=== PATIENT | female | born 1970 | race African-American/Black ===

== ENCOUNTER 2018-07-19 14:29 | Inpatient (IN) | payer MEDICARE, MEDICAID ==
[~2018-07-19] VITALS: Ht 170.2 cm; Wt 118.1 kg
[2018-07-19 14:46] VITALS: BP 108/62
[2018-07-19] MEDS ORDERED: POTASSIUM99 M3 PO (14:49)
[2018-07-19] MEDS ORDERED: ACTOS45 MG ORAL (14:49)
[2018-07-19] MEDS ORDERED: TENORMIN25 MG ORAL (14:49)
[2018-07-19] MEDS ORDERED: ABILIFY30 MG ORAL (14:49)
[2018-07-19] MEDS ORDERED: PREDNISONE10 M2 PO (14:51)
[2018-07-19] MEDS ORDERED: Ketorolac 30mg Inj IV ONE (15:00)
[2018-07-19] MEDS ORDERED: Solu-MEDROL 125mg Inj IVP ONE (15:00)
[2018-07-19 15:25] LABS: EOSINOPHILS % (AUTO) 0.7 % (0.0-3.0); HEMATOCRIT 32.9 % (37.0-47.0); HEMOGLOBIN 10.6 G/DL (12.0-16.0); LYMPHOCYTES % (AUTO) 20.4 % (20.0-45.0); MEAN CORPUSCULAR VOLUME 82 FL (80-99); MONOCYTES % (AUTO) 5.5 % (1.0-10.0); NEUTROPHILS % (AUTO) 72.4 % (45.0-75.0); PLATELET COUNT 311 K/UL (150-450); RED BLOOD COUNT 4.02 M/UL (4.20-5.40); WHITE BLOOD COUNT 5.7 K/UL (4.8-10.8)
[2018-07-19 15:50] LABS: ANION GAP 11 mmol/L (5-15); BLOOD UREA NITROGEN 7 mg/dL (7-18); CALCIUM 8.7 MG/DL (8.5-10.1); CARBON DIOXIDE 27 MMOL/L (21-32); CHLORIDE 101 MMOL/L (98-107); CREATININE 0.9 MG/DL (0.55-1.30); POTASSIUM 2.9 MMOL/L (3.5-5.1); SODIUM 139 MMOL/L (136-145)
[2018-07-19 15:55] LABS: ALANINE AMINOTRANSFERASE 36 U/L (12-78); ALBUMIN 3.2 G/DL (3.4-5.0); ALBUMIN/GLOBULIN RATIO 0.8 (1.0-2.7); ALKALINE PHOSPHATASE 73 U/L (46-116); ASPARTATE AMINO TRANSFERASE 30 U/L (15-37); BILIRUBIN,TOTAL 0.2 MG/DL (0.2-1.0)
[2018-07-19 16:02] VITALS: BP 124/66
--- NOTE | 2018-07-19 16:18 | Diagnostic Imaging Report ---
Indication: Chest pain Technique: One view of the chest Comparison: 05/11/2009 Findings: Lungs and pleural spaces are clear. The heart size is normal. Impression: Negative
--- NOTE | 2018-07-19 16:46 | Emergency Room Report ---
History of Present Illness General Chief Complaint: Chest Pain Source: Patient Present Illness HPI 48-year-old female presents ED for evaluation. Brought in by EMS for chest pain. States that she was feeling sick for the last few days with runny nose, congestion, cough and diarrhea. States when walking to [facility] today she developed chest pain. Pain is midsternal, sharp, nonradiating. Worse with coughing. Denies fevers or chills. Cough is productive with yellowish phlegm. Denies sick contacts or recent travel. No other aggravating relieving factors. Denies any other associated symptoms Allergies: Coded Allergies: No Known Allergies (Unverified , 07/19/18) Patient History Past Medical History: DM, HTN Social History: Denies: smoking, alcohol use, drug use Now: No Immunizations: UTD Reviewed Nursing Documentation: PMH: Agreed; PSxH: Agreed Nursing Documentation-PMH Past Medical History: No History, Except For Hx Hypertension: Yes Hx Diabetes: Yes Review of Systems All Other Systems: negative except mentioned in HPI Physical Exam Vital Signs Date Time Temp Pulse Resp B/P (MAP) Pulse Ox O2 Delivery O2 Flow Rate FiO2 07/19/18 14:24 98.2 126 16 121/77 100 Room Air Sp02 EP Interpretation: reviewed, normal General Appearance: no apparent distress, alert, GCS 15, non-toxic Head: normocephalic, atraumatic Eyes: bilateral eye normal inspection, bilateral eye PERRL ENT: hearing grossly normal, normal pharynx, no angioedema, normal voice Neck: full range of motion, supple/symm/no masses Respiratory: chest non-tender, lungs clear, normal breath sounds, speaking full sentences Cardiovascular #1: no edema, tachycardia Cardiovascular #2: 2+ carotid (R), 2+ carotid (L), 2+ radial (R), 2+ radial (L) , 2+ dorsalis pedis (R), 2+ dorsalis pedis (L) Gastrointestinal: normal bowel sounds, non tender, soft, non-distended, no guarding, no rebound Rectal: deferred Genitourinary: normal inspection, no CVA tenderness Musculoskeletal: back normal, gait/station normal, normal range of motion, non- tender Neurologic: alert, oriented x3, responsive, motor strength/tone normal, sensory intact, speech normal Psychiatric: judgement/insight normal, memory normal, mood/affect normal, no suicidal/homicidal ideation Reflexes: 3+ bicep (R), 3+ bicep (L), 3+ tricep (R), 3+ tricep (L), 3+ knee (R) , 3+ knee (L) Skin: normal color, no rash, warm/dry, well hydrated Lymphatic: no adenopathy Medical Decision Making Diagnostic Impression: Primary Impression: Colitis Additional Impressions: Hypokalemia Vomiting Qualified Codes: R11.2 - Nausea with vomiting, unspecified Flu-like symptoms ER Course Hospital Course 48-year-old female presents ED with cough and congestion, chest pain, vomiting and diarrhea Clinical course Differentialinfluenza, dehydration, ACS/CT, pneumonia Patient placed in stretcher. Initially tachycardic. After initial history and physical I ordered labs, IV fluids, EKG chest x-ray, Toradol and Solu-Medrol. Patient has history of lupus Labs - no leukocytosis, Hb/Hct stable. K 2.9, trop negative, flu swab negative EKG - sinus tachycardia, no acute ischemic changes interpreted by me CXR - no acute process Potassium repleted. Tachycardia improving with IV hydration. Still has vomiting. Feels weak. We'll admit for IV hydration Case discussed with Dr. Le and he agreed to accept the patient to his service for further care and support I feel this is a highly complex case requiring extensive working including EKG/ Rhythm strip, Xray/CT/US, Blood/urine lab work, repeat exams while in ED, and administration of strong opiates/narcotics for pain control, admission to hospital or close patient follow up. Diagnosis - colitis, hypokalemia, vomiting, flu like symptoms Patient admitted to hospital in serious condition Labs Test 07/19/18 15:10 White Blood Count 5.7 K/UL (4.8-10.8) Red Blood Count 4.02 M/UL (4.20-5.40) Hemoglobin 10.6 G/DL (12.0-16.0) Hematocrit 32.9 % (37.0-47.0) Mean Corpuscular Volume 82 FL (80-99) Mean Corpuscular Hemoglobin 26.3 PG (27.0-31.0) Mean Corpuscular Hemoglobin Concent 32.2 G/DL (32.0-36.0) Red Cell Distribution Width 13.0 % (11.6-14.8) Platelet Count 311 K/UL (150-450) Mean Platelet Volume 5.3 FL (6.5-10.1) Neutrophils (%) (Auto) 72.4 % (45.0-75.0) Lymphocytes (%) (Auto) 20.4 % (20.0-45.0) Monocytes (%) (Auto) 5.5 % (1.0-10.0) Eosinophils (%) (Auto) 0.7 % (0.0-3.0) Basophils (%) (Auto) 1.0 % (0.0-2.0) Sodium Level 139 MMOL/L (136-145) Potassium Level 2.9 MMOL/L (3.5-5.1) Chloride Level 101 MMOL/L (98-107) Carbon Dioxide Level 27 MMOL/L (21-32) Anion Gap 11 mmol/L (5-15) Blood Urea Nitrogen 7 mg/dL (7-18) Creatinine 0.9 MG/DL (0.55-1.30) Estimat Glomerular Filtration Rate > 60 mL/min (>60) Glucose Level 122 MG/DL (74-106) Calcium Level 8.7 MG/DL (8.5-10.1) Total Bilirubin 0.2 MG/DL (0.2-1.0) Aspartate Amino Transf (AST/SGOT) 30 U/L (15-37) Alanine Aminotransferase (ALT/SGPT) 36 U/L (12-78) Alkaline Phosphatase 73 U/L (46-116) Troponin I 0.000 ng/mL (0.000-0.056) Total Protein 7.3 G/DL (6.4-8.2) Albumin 3.2 G/DL (3.4-5.0) Globulin 4.1 g/dL Albumin/Globulin Ratio 0.8 (1.0-2.7) EKG Diagnostic Results Rate: tachycardiac Rhythm: NSR ST Segments: no acute changes ASA given to the pt in ED: No Rhythm Strip Diag. Results EP Interpretation: yes Rhythm: NSR, no PVC's, no ectopy Chest X-Ray Diagnostic Results Chest X-Ray Diagnostic Results : Chest X-Ray Ordered: Yes # of Views/Limited/Complete: 1 View Indication: Chest Pain EP Interpretation: Yes Interpretation: no consolidation, no effusion, no pneumothorax, no acute cardiopulmonary disease Impression: No acute disease Electronically Signed by: Electronically signed by Juan C Jama MD Last Vital Signs Date Time Temp Pulse Resp B/P (MAP) Pulse Ox O2 Delivery O2 Flow Rate FiO2 07/19/18 16:02 106 21 124/66 98 Room Air 07/19/18 15:36 98.2 Status: improved Disposition: ADMITTED INPATIENT Condition: Serious Referrals: NON PHYSICIAN (PCP) Juan C Jama MD Jul 19, 2018 16:46
[2018-07-19 17:21] LABS: APPEARANCE,URINE SLIGHTLY CLOUDY; BILIRUBIN, URINE NEGATIVE (NEGATIVE); GLUCOSE, URINE (UA) NEGATIVE (NEGATIVE); KETONES,URINE 1+ (NEGATIVE); LEUKOCYTE ESTERASE ,URINE 1+ (NEGATIVE); NITRITE,URINE NEGATIVE (NEGATIVE); PH,URINE 5 (4.5-8.0); PROTEIN,URINE 1+ (NEGATIVE); UROBILINOGEN,URINE NORMAL MG/DL (0.0-1.0)
[2018-07-19 17:23] LABS: COLOR,URINE YELLOW
[2018-07-19] MEDS ORDERED: cefTRIAXone 1 GM in NS 55 ML IVPB ONE (18:00)
[2018-07-19 18:30] VITALS: BP 138/124
[2018-07-19 19:56] VITALS: BP 108/46
[2018-07-19] MEDS ORDERED: guaiFENesin w/Codeine 5ml Liq ud ORAL PRN (22:00)
[2018-07-19] MEDS ORDERED: Azithromycin 500 MG in D5W 275 ML IV ONE (23:00)
[2018-07-19] MEDS: NS w/KCl 20mEq 1,000 ML IV SCH (23:15)
[2018-07-20] VITALS: BP 108/60
[2018-07-20] MEDS ORDERED: Norco 5mg/325mg tab ORAL PRN (01:30)
--- NOTE | 2018-07-20 01:45 | History and Physical Report ---
DATE OF ADMISSION: 07/19/2018 REASON FOR ADMISSION: Flu-like symptoms complicated by chest pain, shortness of breath, and refractory diarrhea. HISTORY OF PRESENT ILLNESS: This is a 48-year-old -[place] female. She developed upper respiratory symptoms several days ago, which she describes as flu-like. She had a runny nose, cough, and congestion. She has had yellow sputum production. She has had worsening aches and pain, and today developed diarrhea with two episodes noted. She has not had any fevers or chills and is not aware of any ill contacts. She lives alone. The patient has had some chest pain that she describes associated with coughing. She also notes a couple episodes of vomiting over the past days. PAST MEDICAL HISTORY: Notable for type 2 diabetes, hypertension, systemic lupus. ALLERGIES: None. MEDICATIONS: Reviewed and reconciled. SOCIAL HISTORY: Nonsmoker. No alcohol or substance abuse. FAMILY HISTORY: Noncontributory. REVIEW OF SYSTEMS: Notable for chronic steroid use. Prednisone 20 mg daily for her lupus. In the past, she has been on Plaquenil, but she does not recall why this was discontinued. PHYSICAL EXAMINATION: GENERAL: Moderately obese female, in mild distress. VITAL SIGNS: Blood pressure 121/77, pulse 126, respiratory rate 16. Afebrile. HEENT: Conjunctivae pink. Nasal discharge. Oropharynx clear. No thrush. NECK: Supple. No adenopathy. LUNGS: Bilateral breath sounds. No wheezing or rales. CARDIAC: Regular rhythm. Rapid rate. Normal S1, S2. No murmur. ABDOMEN: Obese and soft. No focal tenderness, guarding, or rebound. EXTREMITIES: No clubbing, cyanosis, or edema. SKIN: Without rash. LABORATORY AND DIAGNOSTIC DATA: Chest x-ray with no acute process. Nasal swab negative for influenza. White count 5.7, hemoglobin 10.6. Sodium 139, potassium 2.9, bicarb 27, BUN 7, creatinine 0.9. Troponin 0, albumin 3.2. Urinalysis with only 2 to 4 white cells. IMPRESSION: 1. Probable viral syndrome. 2. Bronchitis. 3. Colitis. 4. Hypovolemia and dehydration. 5. Mild protein-calorie malnutrition. 6. Hypokalemia. 7. Obesity. 8. Systemic lupus, immunocompromised state due to chronic steroid use. 9. Microcytic anemia. 10. History of hypertension. 11. History of type 2 diabetes mellitus. PLAN: 1. Hydration. 2. Stress dose steroids. 3. Empiric antibiotics with azithromycin. 4. Stool studies. 5. Iron panel. 6. Insulin coverage by sliding scale. 7. DVT prophylaxis. Marquise Le M.D. DR: LELE JOB#: [id number] CC:
[2018-07-20 04:00] VITALS: BP 125/70
[2018-07-20] MEDS: NS w/KCl 20mEq 1,000 ML IV SCH ×2 (05:37→15:33)
[2018-07-20] MEDS: Albuterol/Ipratropium 3ml neb HHN SCH ×3 (07:36→19:45)
[2018-07-20 08:00] VITALS: BP 108/65
[2018-07-20] MEDS: Heparin 5000 units/ml inj SUBQ SCH ×2 (08:22→21:18)
[2018-07-20 12:00] VITALS: BP 115/69
[2018-07-20 16:00] VITALS: BP 106/62
[2018-07-20 20:00] VITALS: BP 117/64
--- NOTE | 2018-07-20 20:00 | Consultation ---
DATE OF CONSULTATION: 07/20/2018 INFECTIOUS DISEASES CONSULTATION CONSULTING PHYSICIAN: Marcia Alvarez M.D. REFERRING PHYSICIAN: Marquise Le M.D. REASON FOR CONSULTATION: Possible pneumonia. HISTORY OF PRESENTING ILLNESS: This is a 48-year-old lady with history of diabetes, hypertension, lupus, who started having fever, chills, cough, congestion as well as shortness of breath. An Infectious Diseases consultation has been obtained for possible pneumonia. PAST MEDICAL HISTORY: 1. History of diabetes. 2. Hypertension. 3. Lupus. SOCIAL HISTORY: She does not smoke, drink, or use drugs. FAMILY HISTORY: Noncontributory. REVIEW OF SYSTEMS: RESPIRATORY: She did have fever and chills. She has cough. She has congestion. She has shortness of breath. She did have chest pain sometimes. CARDIAC: She did have chest pain sometimes. No palpitation. No dizziness. No syncope. GASTROINTESTINAL: No nausea. No vomiting. No abdominal pain or diarrhea. MEDICATIONS: As an inpatient, she is on azithromycin, subcutaneous heparin, atenolol, Abilify, prednisone, Protonix, albuterol, ipratropium, [place], ibuprofen, Robitussin With Codeine, Zofran. ALLERGIES: No known drug allergies. PHYSICAL EXAMINATION: VITAL SIGNS: Temperature of 98.2, T-max of 98.2, pulse of 107, respiratory rate 16, blood pressure 108/65, O2 saturation of 97%. HEENT: Pupils equally reactive to light and accommodation. Mouth appears clean without thrush. NECK: Supple. No adenopathy. No JVD. CARDIOVASCULAR: Regular rate and rhythm. No murmurs. LUNGS: Clear to auscultation bilaterally. No crackles. No wheezes. ABDOMEN: Soft and nontender. No organomegaly. EXTREMITIES: No cyanosis, no clubbing, no edema. LABORATORY AND DIAGNOSTIC DATA: White count 5.7, hemoglobin 10.6, hematocrit 32.9, MCV 82, platelet count of 311,000 with neutrophils of 72%. Sodium 139, potassium 2.9, chloride 101, bicarbonate 27, BUN 7, creatinine 0.9, glucose 122, calcium 8.7, total bilirubin 0.2, AST 30, ALT 36, alkaline phosphatase 73, total protein 7.3, albumin 3.2. UA is showing 2-4 white cells. Nasal swab was negative for influenza A and B. Chest x-ray is unremarkable. ASSESSMENT: 1. This is a 48-year-old lady with history of diabetes and hypertension, who comes in with fever, cough, shortness of breath. We will like to rule out pneumonia as a possibility although initial chest x-ray is negative. 2. Diabetes. 3. Hypertension. 4. Lupus. PLAN: 1. Continue azithromycin for now. 2. We will order sputum for Gram stain and culture. 3. We will follow up cultures and adjust antibiotics accordingly. 4. We will order for serum Legionella antibody. 5. We will order for Mycoplasma serology. I would like to thank Dr. Le for this consultation. Marcia Alvarez M.D. DR: Janie JOB#: [id number] CC: Marquise Le M.D.
[2018-07-21] VITALS: BP 131/73
[2018-07-21] MEDS: NS w/KCl 20mEq 1,000 ML IV SCH ×4 (00:13→23:40)
[2018-07-21] MEDS: Azithromycin 500 MG in D5W 275 ML IV SCH ×2 (00:16→23:39)
--- NOTE | 2018-07-21 00:30 | Progress Note ---
INTERNAL MEDICINE PROGRESS NOTE DATE: 07/20/2018 SUBJECTIVE: The patient is withdrawn but responsive. When asked if she has any cough, she starts to cough and says yes. She has not had any recurring diarrhea. OBJECTIVE: VITAL SIGNS: Blood pressure 117/64, pulse 99, and respirations 18. Afebrile. Room air oxygen saturations are 97%. GENERAL: Moderately obese. Lying flat, in no distress. Mild hirsutism. LUNGS: Bilateral breath sounds. Few rhonchi. HEART: Regular rhythm and rate. Normal S1, S2. ABDOMEN: Obese and soft. EXTREMITIES: There is no calf tenderness. IMPRESSION: 1. Upper respiratory infection suggesting acute bronchitis and possible bronchopneumonia. 2. Diarrhea, which seems to have resolved. 3. History of systemic lupus, on steroids chronically. 4. Type 2 diabetes mellitus. 5. Obesity. 6. Hypertensive heart disease. PLAN: 1. Continue azithromycin. 2. Appreciated Infectious Disease consult. 3. Await serology results and culture results. 4. DVT prophylaxis. 5. Psychiatric followup. 6. Stool studies. 7. Repeat chest x-ray. Jay Cuello JOB#: [id number] CC:
[2018-07-21] MEDS: Albuterol/Ipratropium 3ml neb HHN SCH ×5 (01:00→20:38)
[2018-07-21 04:00] VITALS: BP 145/83
[2018-07-21 07:48] LABS: BASOPHILS % (AUTO) 0.4 % (0.0-2.0); EOSINOPHILS % (AUTO) 0.1 % (0.0-3.0); HEMATOCRIT 29.3 % (37.0-47.0); HEMOGLOBIN 9.5 G/DL (12.0-16.0); LYMPHOCYTES % (AUTO) 31.1 % (20.0-45.0); MEAN CORPUSCULAR VOLUME 83 FL (80-99); MONOCYTES % (AUTO) 4.8 % (1.0-10.0); NEUTROPHILS % (AUTO) 63.5 % (45.0-75.0); PLATELET COUNT 294 K/UL (150-450); RED BLOOD COUNT 3.54 M/UL (4.20-5.40); RED CELL DISTRIBUTION WIDTH 13.2 % (11.6-14.8); WHITE BLOOD COUNT 7.4 K/UL (4.8-10.8)
[2018-07-21 08:04] LABS: % IRON SATURATION 9 % (15-50); IRON 30 ug/dL (50-175); TOTAL IRON BINDING CAPACITY 316 ug/dL (250-450)
[2018-07-21 08:19] LABS: ALANINE AMINOTRANSFERASE 39 U/L (12-78); ALBUMIN 2.9 G/DL (3.4-5.0); ALBUMIN/GLOBULIN RATIO 0.7 (1.0-2.7); ALKALINE PHOSPHATASE 63 U/L (46-116); ANION GAP 7 mmol/L (5-15); ASPARTATE AMINO TRANSFERASE 28 U/L (15-37); BILIRUBIN,TOTAL 0.1 MG/DL (0.2-1.0); BLOOD UREA NITROGEN 8 mg/dL (7-18); CALCIUM 8.5 MG/DL (8.5-10.1); CARBON DIOXIDE 26 MMOL/L (21-32); CHLORIDE 108 MMOL/L (98-107); POTASSIUM 3.3 MMOL/L (3.5-5.1); SODIUM 141 MMOL/L (136-145)
[2018-07-21 08:24] VITALS: BP 145/83
[2018-07-21] MEDS: Heparin 5000 units/ml inj SUBQ SCH ×2 (08:33→20:19)
--- NOTE | 2018-07-21 10:59 | Infectious Diseases Prog Note ---
Assessment/Plan Assessment/Plan antibiotics : azithromycin A 1. ? pneumonia 2. diabetes mellitus 3. hypertension 4. lupus P 1. continue azithromycin 2. will follow up cultures Subjective Constitutional: Denies: chills Respiratory: Reports: shortness of breath - decreasing, dry cough - decreasing Allergies: Coded Allergies: No Known Allergies (Unverified , 07/19/18) Objective Vital Signs Last 24 Hour Vital Signs Date Time Temp Pulse Resp B/P (MAP) Pulse Ox O2 Delivery O2 Flow Rate FiO2 07/21/18 09:00 Room Air 07/21/18 08:31 75 145/83 07/21/18 08:24 97.8 75 18 145/83 (103) 98 07/21/18 07:57 95 16 99 Room Air 21 07/21/18 07:49 96 16 98 Room Air 21 07/21/18 04:00 97.8 75 18 145/83 (103) 98 07/21/18 00:00 97.9 96 18 131/73 (92) 96 07/20/18 23:37 Room Air 21 07/20/18 23:37 Room Air 21 07/20/18 21:00 Room Air 07/20/18 20:00 97.4 99 18 117/64 (81) 97 07/20/18 19:46 99 20 99 Room Air 21 07/20/18 19:40 97 20 98 Room Air 21 07/20/18 16:00 97.6 103 19 106/62 (77) 96 07/20/18 13:42 98 18 99 Room Air 21 07/20/18 13:32 96 18 99 Room Air 21 07/20/18 12:00 97.8 93 19 115/69 (84) 96 Height (Feet): 5 Height (Inches): 7.00 Weight (Pounds): 260 Respiratory/Chest: lungs clear Cardiovascular: normal rate, regular rhythm, no gallop/murmur Abdomen: soft, non tender Extremities: no edema Microbiology Date/Time Source Procedure Growth Status 07/19/18 15:10 Nasal Nares Influenza Types A,B Antigen ([place]) - Final Complete 07/19/18 16:45 Urine,Clean Catch Urine Culture - Preliminary Gram Negative Bacillus 1 Resulted Laboratory Tests Test 07/20/18 11:28 07/21/18 07:20 Legionella pneumophila Group 1 Ab Pending Legionella pneumophilia IgM Group 1 Pending Mycoplasma pneumoniae IgG Antibody Pending Mycoplasma pneumoniae IgM Ab Titer Pending White Blood Count 7.4 K/UL (4.8-10.8) Red Blood Count 3.54 M/UL (4.20-5.40) L Hemoglobin 9.5 G/DL (12.0-16.0) L Hematocrit 29.3 % (37.0-47.0) L Mean Corpuscular Volume 83 FL (80-99) Mean Corpuscular Hemoglobin 26.9 PG (27.0-31.0) L Mean Corpuscular Hemoglobin Concent 32.4 G/DL (32.0-36.0) Red Cell Distribution Width 13.2 % (11.6-14.8) Platelet Count 294 K/UL (150-450) Mean Platelet Volume 5.0 FL (6.5-10.1) L Neutrophils (%) (Auto) 63.5 % (45.0-75.0) Lymphocytes (%) (Auto) 31.1 % (20.0-45.0) Monocytes (%) (Auto) 4.8 % (1.0-10.0) Eosinophils (%) (Auto) 0.1 % (0.0-3.0) Basophils (%) (Auto) 0.4 % (0.0-2.0) Sodium Level 141 MMOL/L (136-145) Potassium Level 3.3 MMOL/L (3.5-5.1) L Chloride Level 108 MMOL/L (98-107) H Carbon Dioxide Level 26 MMOL/L (21-32) Anion Gap 7 mmol/L (5-15) Blood Urea Nitrogen 8 mg/dL (7-18) Creatinine 1.0 MG/DL (0.55-1.30) Estimat Glomerular Filtration Rate > 60 mL/min (>60) Glucose Level 102 MG/DL (74-106) Calcium Level 8.5 MG/DL (8.5-10.1) Magnesium Level 1.6 MG/DL (1.8-2.4) L Iron Level 30 ug/dL (50-175) L Total Iron Binding Capacity 316 ug/dL (250-450) Percent Iron Saturation 9 % (15-50) L Unsaturated Iron Binding 286 ug/dL (112-346) Total Bilirubin 0.1 MG/DL (0.2-1.0) L Aspartate Amino Transf (AST/SGOT) 28 U/L (15-37) Alanine Aminotransferase (ALT/SGPT) 39 U/L (12-78) Alkaline Phosphatase 63 U/L (46-116) Total Protein 6.9 G/DL (6.4-8.2) Albumin 2.9 G/DL (3.4-5.0) L Globulin 4.0 g/dL Albumin/Globulin Ratio 0.7 (1.0-2.7) L Thyroid Stimulating Hormone (TSH) 0.893 uiU/mL (0.358-3.740) Current Medications Medications (Trade) Dose Ordered Sig/Kristie Route PRN Reason Start Time Stop Time Status Last Admin Dose Admin Acetaminophen/ Hydrocodone Bitart ([place] 5/325) 1 tab Q6H PRN ORAL For Pain 07/20/18 01:30 07/27/18 01:29 Albuterol/ Ipratropium (Albuterol/ Ipratropium) 3 ml Q6HRT HHN 07/20/18 07:00 07/25/18 06:59 07/21/18 07:48 Aripiprazole (Abilify) 15 mg DAILY ORAL 07/20/18 09:00 08/19/18 08:59 07/21/18 08:30 Atenolol (Tenormin) 50 mg DAILY ORAL 07/20/18 09:00 08/19/18 08:59 07/21/18 08:31 Azithromycin 500 mg/Dextrose 275 ml @ 275 mls/hr Q24HRS IV 07/20/18 23:00 07/26/18 23:59 07/21/18 00:16 Guaifenesin/ Codeine Phosphate (Robitussin with codeine) 5 ml Q6H PRN ORAL For Cough 07/19/18 22:00 08/18/18 21:59 Heparin Sodium (Porcine) (Heparin 5000 units/ml) 5,000 units EVERY 12 HOURS SUBQ 07/20/18 09:00 08/19/18 08:59 07/21/18 08:33 Ibuprofen (Motrin) 400 mg TID PRN ORAL For Pain 07/20/18 01:00 08/19/18 00:59 Ondansetron HCl (Zofran) 4 mg Q6H PRN IVP Nausea & Vomiting 07/19/18 21:58 08/18/18 21:57 Pantoprazole (Protonix) 40 mg DAILY ORAL 07/20/18 09:00 08/19/18 08:59 07/21/18 08:31 Prednisone (predniSONE) 40 mg DAILY ORAL 07/20/18 09:00 08/19/18 08:59 07/21/18 08:31 Sodium Chloride 1,000 ml @ 125 mls/hr Q8H IV 07/19/18 23:00 08/18/18 22:59 07/21/18 08:31 Marcia Alvarez MD Jul 21, 2018 10:59
[2018-07-21 12:00] VITALS: BP 142/92
--- NOTE | 2018-07-21 13:40 | Diagnostic Imaging Report ---
EXAM: XR Chest, 2 Views CLINICAL HISTORY: ABN CHST TECHNIQUE: Frontal and lateral views of the chest. COMPARISON: Chest x-rays dated 07/19/18 FINDINGS: Lungs: Mildly increased interstitial markings. The lungs are otherwise clear without focal consolidation. Pleural space: Unremarkable. The costophrenic angle are sharp. No visible pneumothorax. Heart: Unremarkable. No cardiomegaly. Mediastinum: Unremarkable. Bones/joints: Unremarkable. Upper abdomen: Surgical clips in the right upper abdominal quadrant suggest prior cholecystectomy. IMPRESSION: Mildly increased interstitial markings. This is nonspecific and cannot exclude a mild viral/interstitial pneumonitis. No focal consolidation.
--- NOTE | 2018-07-21 14:13 | Cardiology Report ---
APPROVED REPORT EKG Measurement Heart [id number] CO [id number] [id number] Sinus tachycardia Cannot rule out Anterior infarct, age undetermined Abnormal ECG
[2018-07-21 16:00] VITALS: BP 144/64
[2018-07-21 20:00] VITALS: BP 138/79
[2018-07-22] VITALS: BP 151/60
--- NOTE | 2018-07-22 01:15 | Progress Note ---
DATE: 07/21/2018 INTERNAL MEDICINE PROGRESS NOTE SUBJECTIVE: The patient still complains of shortness of breath with activity, although she has improved. She has a dry cough that is better. No sputum production. She has not had any diarrhea or vomiting. Room air oxygen saturation 98 to 99%. OBJECTIVE: VITAL SIGNS: Blood pressure 145/83, pulse 75, respirations 18, and afebrile. NECK: Supple and obese. LUNGS: Diminished breath sounds. Few rhonchi. No sinus tenderness. CARDIAC: Regular rhythm and rate. Distant S1 and S2. ABDOMEN: Obese. EXTREMITIES: With no pitting edema or calf tenderness. LABORATORY DATA: White count 7.4 and hemoglobin 9.5. Sodium 141, potassium 3.3, bicarbonate 26, BUN 8, and creatinine 1. Magnesium 1.6. Albumin 2.9. TSH is normal. Iron sat is 9%. IMPRESSION: 1. Acute bronchitis, resolved. 2. Diarrhea, likely due to gastroenteritis. 3. Hypertension. 4. Hypokalemia. 5. Hypomagnesemia. 6. Moderate protein calorie malnutrition. 7. Obesity. 8. Hypovolemia and dehydration, corrected. PLAN: 1. Discontinue intravenous fluids. 2. IV magnesium replacement. 3. Oral potassium replacement. 4. Empiric antibiotics. 5. Await stool studies. If diarrhea is noted, stool occult blood testing. 6. Stool study, begin iron replacement. 7. Add ACEi rx. Marquise Le M.D. DR: LAZARA JOB#: [id number] CC: ALLEN
[2018-07-22] MEDS: Albuterol/Ipratropium 3ml neb HHN SCH ×4 (01:24→20:21)
[2018-07-22 04:00] VITALS: BP 137/78
[2018-07-22 08:00] VITALS: BP 137/78
[2018-07-22] MEDS: Heparin 5000 units/ml inj SUBQ SCH ×2 (09:57→21:08)
[2018-07-22 16:00] VITALS: BP 139/83
--- NOTE | 2018-07-22 16:03 | Infectious Diseases Prog Note ---
Assessment/Plan Assessment/Plan antibiotics : azithromycin A 1. proteus UTI 2. diabetes mellitus 3. hypertension 4. lupus P 1. start ceftriaxone 2. d/c azithromycin 3. will follow up cultures Subjective Constitutional: Denies: fever, chills Respiratory: Reports: shortness of breath - mild, dry cough - mild Gastrointestinal/Abdominal: Denies: nausea, vomiting, diarrhea Neurologic: Reports: other - dizziness Musculoskeletal: Denies: pain Allergies: Coded Allergies: No Known Allergies (Unverified , 07/19/18) Objective Vital Signs Last 24 Hour Vital Signs Date Time Temp Pulse Resp B/P (MAP) Pulse Ox O2 Delivery O2 Flow Rate FiO2 07/22/18 14:24 78 20 100 Room Air 21 07/22/18 14:16 78 18 100 Room Air 21 07/22/18 09:53 82 151/84 07/22/18 09:00 Room Air 07/22/18 08:00 97.4 75 19 137/78 (97) 98 07/22/18 08:00 85 18 100 Room Air 21 07/22/18 07:50 83 18 99 Room Air 21 07/22/18 04:00 97.4 75 19 137/78 (97) 98 07/22/18 01:35 81 20 99 Room Air 21 07/22/18 01:24 76 18 98 Room Air 21 07/22/18 00:00 97.1 62 19 151/60 (90) 98 07/21/18 21:00 Room Air 07/21/18 20:48 73 20 97 Room Air 21 07/21/18 20:38 72 18 96 Room Air 21 07/21/18 20:00 97.6 79 20 138/79 (98) 98 07/21/18 16:29 Room Air Height (Feet): 5 Height (Inches): 7.00 Weight (Pounds): 260 Respiratory/Chest: lungs clear Cardiovascular: normal rate, regular rhythm, no gallop/murmur Abdomen: soft, non tender Extremities: no edema Microbiology Date/Time Source Procedure Growth Status 07/19/18 17:10 Nasal Nares MRSA Culture - Final NO METHICILLIN RESISTANT STAPH AUREUS... Complete 07/19/18 16:45 Urine,Clean Catch Urine Culture - Final Proteus Mirabilis Complete 07/19/18 17:10 Rectum VRE Culture - Final NO VANCOMYCIN RESISTANT ENTEROCOCCUS ... Resulted 07/19/18 17:10 Rectum Pending Resulted Laboratory Tests Test 07/22/18 00:05 Stool Occult Blood Negative (NEGATIVE) Current Medications Medications (Trade) Dose Ordered Sig/Kristie Route PRN Reason Start Time Stop Time Status Last Admin Dose Admin Acetaminophen/ Hydrocodone Bitart ([place] 5/325) 1 tab Q6H PRN ORAL For Pain 07/20/18 01:30 07/27/18 01:29 Albuterol/ Ipratropium (Albuterol/ Ipratropium) 3 ml Q6HRT HHN 07/20/18 07:00 07/25/18 06:59 07/22/18 14:20 Aripiprazole (Abilify) 15 mg DAILY ORAL 07/20/18 09:00 08/19/18 08:59 07/22/18 09:53 Atenolol (Tenormin) 50 mg DAILY ORAL 07/20/18 09:00 08/19/18 08:59 07/22/18 09:53 Azithromycin 500 mg/Dextrose 275 ml @ 275 mls/hr Q24HRS IV 07/20/18 23:00 07/26/18 23:59 07/21/18 23:39 Ceftriaxone Sodium 1 gm/ Dextrose 55 ml @ 110 mls/hr Q24H IVPB 07/22/18 15:00 07/29/18 14:59 Guaifenesin/ Codeine Phosphate (Robitussin with codeine) 5 ml Q6H PRN ORAL For Cough 07/19/18 22:00 08/18/18 21:59 Heparin Sodium (Porcine) (Heparin 5000 units/ml) 5,000 units EVERY 12 HOURS SUBQ 07/20/18 09:00 08/19/18 08:59 07/22/18 09:57 Ibuprofen (Motrin) 400 mg TID PRN ORAL For Pain 07/20/18 01:00 08/19/18 00:59 Ondansetron HCl (Zofran) 4 mg Q6H PRN IVP Nausea & Vomiting 07/19/18 21:58 08/18/18 21:57 Pantoprazole (Protonix) 40 mg DAILY ORAL 07/20/18 09:00 08/19/18 08:59 07/22/18 09:54 Prednisone (predniSONE) 40 mg DAILY ORAL 07/20/18 09:00 08/19/18 08:59 07/22/18 09:53 Marcia Alvarez MD Jul 22, 2018 16:03
[2018-07-22] MEDS: cefTRIAXone 1 GM in D5W 55 ML IVPB SCH (17:36)
[2018-07-22 20:00] VITALS: BP 130/65
[2018-07-22] MEDS ORDERED: Iron Sucrose 100 MG in NS 55 ML IV SCH (23:00)
--- NOTE | 2018-07-22 23:00 | Progress Note ---
DATE: 07/22/2018 CARDIOLOGY AND INTERNAL MEDICINE PROGRESS NOTE SUBJECTIVE: The patient states she is homeless. wireworker was contacted to assist with discharge disposition once she is medically stable. The patient's urine cultures were positive for Proteus. She has less cough and congestion. There is no diarrhea noted. OBJECTIVE: VITAL SIGNS: Blood pressure 151/84, pulse 82, respiratory rate 18. GENERAL: Moderately obese. LUNGS: Diminished breath sounds. Few rhonchi. HEART: Regular rhythm and rate. Normal S1, S2. ABDOMEN: Soft. EXTREMITIES: Nonpitting edema. IMPRESSION: 1. Proteus urinary tract infection. 2. Acute bronchitis. 3. History of lupus. 4. Hypertensive heart disease. 5. Type 2 diabetes mellitus. 6. Homelessness. PLAN: 1. Antimicrobials per Infectious Disease field sales consultant. 2. Check A1c. 3. Dietary restrictions discussed. 4. Weight loss efforts in the future. 5. DVT prophylaxis. Marquise Le M.D. : Gracie JOB#: [id number] CC:
[2018-07-23] VITALS: BP 127/64
[2018-07-23] MEDS: Albuterol/Ipratropium 3ml neb HHN SCH ×4 (01:00→19:56)
[2018-07-23 04:00] VITALS: BP 116/63
[2018-07-23 07:14] LABS: BASOPHILS % (AUTO) 0.6 % (0.0-2.0); EOSINOPHILS % (AUTO) 0.2 % (0.0-3.0); HEMATOCRIT 32.7 % (37.0-47.0); HEMOGLOBIN 10.7 G/DL (12.0-16.0); LYMPHOCYTES % (AUTO) 28.5 % (20.0-45.0); MEAN CORPUSCULAR VOLUME 84 FL (80-99); NEUTROPHILS % (AUTO) 64.6 % (45.0-75.0); PLATELET COUNT 387 K/UL (150-450); RED BLOOD COUNT 3.91 M/UL (4.20-5.40); RED CELL DISTRIBUTION WIDTH 14.4 % (11.6-14.8); WHITE BLOOD COUNT 10.5 K/UL (4.8-10.8)
[2018-07-23 07:39] LABS: ALANINE AMINOTRANSFERASE 49 U/L (12-78); ALBUMIN 3.1 G/DL (3.4-5.0); ALBUMIN/GLOBULIN RATIO 0.7 (1.0-2.7); ALKALINE PHOSPHATASE 71 U/L (46-116); ANION GAP 9 mmol/L (5-15); ASPARTATE AMINO TRANSFERASE 19 U/L (15-37); BILIRUBIN,TOTAL 0.2 MG/DL (0.2-1.0); BLOOD UREA NITROGEN 17 mg/dL (7-18); CALCIUM 8.9 MG/DL (8.5-10.1); CARBON DIOXIDE 29 MMOL/L (21-32); CHLORIDE 105 MMOL/L (98-107); CREATININE 1.1 MG/DL (0.55-1.30); POTASSIUM 3.7 MMOL/L (3.5-5.1); SODIUM 142 MMOL/L (136-145)
[2018-07-23 08:00] VITALS: BP 126/75
[2018-07-23] MEDS: Heparin 5000 units/ml inj SUBQ SCH ×2 (08:52→21:13)
[2018-07-23] MEDS: Lisinopril 20mg tab ORAL SCH (08:54)
[2018-07-23] MEDS ORDERED: Iron Sucrose 100 MG in NS 55 ML IV SCH ×2 (09:00→10:00)
[2018-07-23 11:50] VITALS: BP 166/71
[2018-07-23] MEDS: cefTRIAXone 1 GM in D5W 55 ML IVPB SCH (14:18)
[2018-07-23 16:00] VITALS: BP 124/77
[2018-07-23 20:00] VITALS: BP 124/68
--- NOTE | 2018-07-23 22:30 | Progress Note ---
DATE: 07/23/2018 INTERNAL MEDICINE PROGRESS NOTE SUBJECTIVE: No new complaints. Tolerating diet. OBJECTIVE: VITAL SIGNS: Blood pressure 124/68, pulse 81, respirations 19, afebrile. LUNGS: Clear. CARDIAC: Regular. ABDOMEN: Soft. EXTREMITIES: Trace edema. LABORATORY DATA: Stool occult blood is negative. Hemoglobin A1c is 6.0. Natriuretic peptide 800. IMPRESSION: 1. Proteus urinary tract infection. 2. Acute bronchitis. 3. History of lupus. 4. Hypertensive heart disease. 5. Iron deficiency anemia. 6. Type 2 diabetes mellitus. 7. Homelessness. 8. Elevated natriuretic peptide. PLAN: 1. Iron replacement. 2. Antimicrobials. 3. Maintenance steroids. 4. Discharge planning, will likely need long-term. 5. No additional diabetic therapy indicated at this time other than diet. 6. Check 2D echocardiogram and advance MUNA inhibitor. Marquise Le M.D. DR: SAM JOB#: [id number] CC:
[2018-07-24] VITALS: BP 129/64
[2018-07-24] MEDS: Albuterol/Ipratropium 3ml neb HHN SCH ×2 (01:11→08:02)
[2018-07-24 04:00] VITALS: BP 134/81
[2018-07-24 08:00] VITALS: BP 132/83
[2018-07-24 08:36] VITALS: BP 134/81
[2018-07-24] MEDS: Lisinopril 20mg tab ORAL SCH (08:36)
[2018-07-24] MEDS: Heparin 5000 units/ml inj SUBQ SCH (08:39)
[2018-07-24] MEDS ORDERED: Cephalexin 500mg cap ORAL SCH (09:45)
[2018-07-24] MEDS ORDERED: CEPHALEXIN500 M1 ORAL ×2 (10:30→10:32)
--- NOTE | 2018-07-24 11:00 | Infectious Diseases Prog Note ---
Assessment/Plan Assessment/Plan antibiotics : ceftriaxone A 1. proteus UTI 2. diabetes mellitus 3. hypertension 4. lupus P 1. d/c ceftriaxone 2. start and continue po keflex 4 more days 3. will follow up cultures Subjective Constitutional: Denies: fever, chills Respiratory: Reports: dry cough - decreased; Denies: shortness of breath Gastrointestinal/Abdominal: Denies: nausea, vomiting, diarrhea Musculoskeletal: Denies: pain Allergies: Coded Allergies: No Known Allergies (Unverified , 07/19/18) Objective Vital Signs Last 24 Hour Vital Signs Date Time Temp Pulse Resp B/P (MAP) Pulse Ox O2 Delivery O2 Flow Rate FiO2 07/24/18 09:00 Room Air 07/24/18 08:36 134/81 07/24/18 08:36 70 134/81 07/24/18 08:12 70 20 97 Room Air 21 07/24/18 08:02 69 20 94 Room Air 21 07/24/18 08:00 98.4 68 20 132/83 (99) 98 07/24/18 04:00 97.7 72 19 134/81 (98) 97 07/24/18 01:21 75 18 99 Room Air 21 07/24/18 01:11 72 22 98 Room Air 21 07/24/18 00:00 98.2 69 19 129/64 (85) 95 07/23/18 21:00 Room Air 07/23/18 20:00 97.5 81 19 124/68 (86) 95 07/23/18 19:57 Room Air 21 07/23/18 19:56 Room Air 21 07/23/18 16:00 97.4 70 20 124/77 (93) 97 07/23/18 12:52 79 20 99 Room Air 21 07/23/18 12:46 82 22 96 Room Air 21 07/23/18 11:50 97.7 96 20 166/71 (102) 99 Height (Feet): 5 Height (Inches): 7.00 Weight (Pounds): 260 Respiratory/Chest: lungs clear Cardiovascular: normal rate, regular rhythm, no gallop/murmur Abdomen: soft, non tender Extremities: no edema Microbiology Date/Time Source Procedure Growth Status 07/22/18 00:05 Stool Stool Culture - Preliminary NO SALMONELLA,SHIGELLA,OR CAMPYLOBACT... Resulted Current Medications Medications (Trade) Dose Ordered Sig/Kristie Route PRN Reason Start Time Stop Time Status Last Admin Dose Admin Aripiprazole (Abilify) 15 mg DAILY ORAL 07/20/18 09:00 08/19/18 08:59 07/24/18 08:36 Atenolol (Tenormin) 50 mg DAILY ORAL 07/20/18 09:00 08/19/18 08:59 07/24/18 08:36 Cephalexin (Keflex) 500 mg TID ORAL 07/24/18 09:45 07/31/18 09:44 Ibuprofen (Motrin) 400 mg TID PRN ORAL For Pain 07/20/18 01:00 08/19/18 00:59 Lisinopril (Prinivil) 20 mg DAILY ORAL 07/23/18 09:00 08/22/18 08:59 07/24/18 08:36 Prednisone (predniSONE) 20 mg DAILY ORAL 07/25/18 09:00 08/24/18 08:59 Marcia Alvarez MD Jul 24, 2018 11:00
[2018-07-24] MEDS ORDERED: PREDNISONE20 M1 PO (12:44)
[2018-07-24] MEDS ORDERED: FERROUS SULFAT325 M2 ORAL (12:45)
[2018-07-24] MEDS ORDERED: LISINOPRIL20 MG ORAL (12:45)
[2018-07-24] MEDS ORDERED: ABILIFY15 MG ORAL (12:47)
--- NOTE | 2018-07-25 01:30 | Progress Note ---
DATE: 07/24/2018 INTERNAL MEDICINE PROGRESS NOTE SUBJECTIVE: The patient has no cough, congestion, or shortness of breath. OBJECTIVE: VITAL SIGNS: Blood pressure 134/81, pulse 70, and respirations 20. LUNGS: Good breath sounds. No wheezing. HEART: Regular rhythm and rate. Normal S1, S2. ABDOMEN: Soft. EXTREMITIES: No edema. Moderately obese. IMPRESSION: 1. Proteus urinary tract infection. 2. Diabetes mellitus. 3. History of lupus. 4. Hypertensive heart disease. 5. Homelessness. 6. Schizoaffective disorder. PLAN: 1. Transition to oral antibiotics. 2. Discharge medication regimen reviewed, reconciled, and discussed with the patient. 3. As the patient is agreeable to go to a assisted with safety ensured for her complete recovery there, discussed with social work manager. Marquise Le M.D. DR: GUCCI JOB#: [id number] CC:
--- NOTE | 2018-07-25 10:01 | Discharge Summary ---
Discharge Summary Discharge Summary _ DATE OF ADMISSION: 07/19/2018 DATE OF DISCHARGE: 07/24/2018 DISCHARGED BY: Dr. Marquise Le CONSULTANTS: Dr. Marcia Alvarez BRIEF HOSPITAL COURSE: Patient is a 48-year-old [place] female, brought in via EMS. She developed upper respiratory symptoms several days ago, which she described as flulike symptoms. She had runny nose, cough and congestion. She had yellow sputum production. She had worsening body aches and pain. She developed diarrhea and had 2 episodes of diarrhea. She denied any fever or chills. She is not aware of any ill contacts. She had chest pain described to be associated with coughing. She also had couple episodes of vomiting for the past days. She has medical history notable for type 2 diabetes, hypertension and systemic lupus. Been on chronic steroid use of prednisone 20 mg daily for her lupus. On evaluation at ED, patient was initially tachycardic, heart rate 126. Blood work did not show any leukocytosis, hemoglobin was 10, hematocrit 33. Potassium 2.9. Troponin was negative. Urinalysis with 2-4 WBC, negative nitrite. EKG was in sinus tachycardia with no acute ischemic changes. Nasal swab was negative for influenza. Chest x-ray with no acute process. Potassium was repleted. Tachycardia improved with IV hydration. Patient was still vomiting. She was admitted for bronchitis and probable viral syndrome. She was started empirically on azithromycin. She was given stress dose steroids. She was given IV hydration. ID was consulted. Urine culture with growth of Proteus. Stool culture with usual enteric page, no Salmonella, Shigella or Campylobacter. Azithromycin was discontinued and she was given ceftriaxone. Repeat chest x-ray showed increased interstitial markings with no focal consolidation. Blood pressure was monitored. She was given lisinopril and atenolol. She was continued on Abilify daily. Noted to have anemia. Stool OB was negative x1. She was given IV iron. There was no vomiting no diarrhea noted. IV fluid was discontinued. Social service was consulted to aid with discharge plan. Antibiotic was transitioned to p.o. She was eventually cleared for discharge. FINAL DIAGNOSES: Proteus UTI Acute bronchitis Diabetes mellitus type 2 Lupus Hypertensive heart disease Sinus homelessness Schizoaffective disorder Iron deficiency anemia Moderate protein calorie malnutrition Hypokalemia Diarrhea, likely due to gastroenteritis Obesity Hypokalemia and dehydration, corrected DISPOSITION: Patient was discharged to a [facility]. DISCHARGE MEDICATIONS: Refer to Discharge Medication List. I have been assigned to dictate discharge summary on this account, and I was not involved in the patient's management. Therese Foley NP Jul 25, 2018 10:01
--- NOTE | 2018-07-25 13:31 | Cardiology Report ---
APPROVED REPORT EXAM: Two-dimensional and M-mode echocardiogram with Doppler and color Doppler. INDICATION Congestive Heart Failure M-Mode DIMENSIONS IVSd1.1 (0.7-1.1cm)Left Atrium (MM)3.5 (1.6-4.0cm) LVDd5.2 (3.5-5.6cm)Aortic Root3.0 (2.0-3.7cm) PWd1.2 (0.7-1.1cm)Aortic Cusp Exc.2.0 (1.5-2.0cm) LVDs3.4 (2.5-4.0cm) PWs1.6 cm Normal left ventricular chamber size, systolic function and wall motion. Left ventricular ejection fraction estimated to be 60 %. Mild left ventricular hypertrophy. No evidence of pericardial effusion. Left atrial size at upper limits of normal. Right cardiac chamber sizes are within normal limits. Mild focal aortic valve sclerosis with adequate cusp excursion. Mildly thickened mitral valve leaflets with normal excursion. Mild mitral annulus and aortic root calcification. Pulmonic valve not well visualized. Normal tricuspid valve structure. IVC dilated at 2.1 cm with physiological collapse. A color flow and spectral Doppler study was performed and revealed: No aortic insufficiency. Trace mitral regurgitation. reduced left ventricular relaxation c/w impaired relaxation diastolic dysfunction. Trace tricuspid regurgitation. Tricuspid systolic velocities suggests peak right ventricular systolic pressure of 35 mmHg, consistent with mild pulmonary hypertension. Trace pulmonic regurgitation present.
--- NOTE | 2018-07-25 17:09 | Diagnostic Imaging Report ---
APPROVED REPORT CPT Code: 16720 Present Symptoms Comments: Chest pain Exam is technically limited due to, patient request. BILATERAL: Imaging reveals a patent deep venous system bilaterally. There is no evidence of thrombus within the common femoral, popliteal or tibial segments. The greater saphenous veins are also within normal limits. Doppler indicates normal spontaneous flow within these segments. The superficial femoral veins were not imaged.
== END 2018-07-24 13:12 | disposition home or self-care (01) | DRG 202 ==
LOC: EDBD 14:29 → EMR 14:55 → EDBEDREQ 16:47 → 4E 17:25 → EDBEDREQ 18:04 → EMR 19:20
DX: J20.9 Acute bronchitis, unspecified (principal); N39.0 Urinary tract infection, site not specified; E44.0 Moderate protein-calorie malnutrition; Z68.41 Body mass index [BMI] 40.0-44.9, adult; K52.9 Noninfective gastroenteritis and colitis, unspecified; E11.9 Type 2 diabetes mellitus without complications; M32.9 Systemic lupus erythematosus, unspecified; B96.4 Proteus (mirabilis) (morganii) as the cause of diseases classified elsewhere; I11.9 Hypertensive heart disease without heart failure; F25.9 Schizoaffective disorder, unspecified; D50.9 Iron deficiency anemia, unspecified; E87.6 Hypokalemia; E86.0 Dehydration; Z59.0 Homelessness; E66.9 Obesity, unspecified
CPT/HCPCS: 36415; 71045; 71046; 80053; 81003; 82270; 83036; 83540; 83550; 83735; 83880; 84443; 84484; 85025; 86710; 86713; 86738; 87045; 87081; 87086; 87181; 93005; 93306; 93970; 94640; 96361; 96365; 96375; 99285; J7620; J8499